=== PATIENT | male | born 1950 | race Caucasian/White ===

== ENCOUNTER 2016-06-20 16:37 | Observation (INO) | payer MEDICARE, MEDICAID ==
[~2016-06-20] VITALS: Ht 182.9 cm; Wt 111.2 kg
[~2016-06-20 16:37] MED LIST: AMLODIPINE10 MG PO; AMLODIPINE5 MG PO; ASPIRIN LOW DOS81 M2 PO; ASPIRIN OR; AVANDIA4 MG OR; BENICAR40 MG OR; BENICAR40 MG PO; CIPRO500 MG OR; COREG25 MG OR; COREG25 MG PO; DIAZEPAM5 MG OR; DIAZEPAM5 MG PO; DIGITEK0.125 MG OR; DIGOXIN0.125 MG PO; HYDROCODON XX; LANTUS; LANTUS SC; LANTUS100 MG/ML SC; LEXAPRO10 MG OR; LEXAPRO10 MG PO; LIPITOR10 MG OR; LORTAB 5 PO; LORTAB 7.5 OR; LOSARTAN POTASS50 MG; MEDDOSEPAK OR; METFORMIN500 MG PO; NEXIUM20 M1 OR; NIASPAN1000 ER OR; NIASPAN500 MG PO; NORCO1 TA1 PO; NORVASC2.5 MG PO; PERCOCET1 TA1 OR; PERCOCET1 TA2 OR; PRAVACHOL40 MG PO; PRAVASTATIN SOD40 MG PO; PRILOSEC40 MG PO; SINGULAIR OR; TRICOR145 MG OR; WELLBUTRIN SR150 MG PO
[2016-06-20 17:21] LABS: HEMATOCRIT 45.7 % (39.0-50.0); HEMOGLOBIN 15.2 g/dl (14.0-18.0); IMMATURE GRANULOCYTES 0.3 % (0.0-1.0); MEAN CELL VOLUME 90.5 fL CALC (80.0-100.0); MEAN CORPUSCULAR HGB 30.1 pG CALC (26.0-32.0); MEAN CORPUSCULAR HGB CONC 33.3 g/L CALC (32.0-36.0); NEUT# 4.93 thou/uL (1.82-7.42); RED BLOOD COUNT 5.05 mill/uL (4.70-6.10); RED CELL DISTRI WIDTH 13.2 % (11.5-15.5)
[2016-06-20 17:49] LABS: ALKALINE PHOSPHATASE 117 u/l (38-126); ANION GAP 15 (6-22 (CALC)); BILIRUBIN, TOTAL 0.9 mg/dL (0.0-1.4); BUN 7 mg/dL (8-23); BUN/CREATININE RATIO 9 (12-20 (CALC)); CALCIUM 9.3 mg/dL (8.4-10.2); CARBON DIOXIDE 28 mmol/l (22-30); CHLORIDE 99 mmol/l (95-108); CREATININE 0.7 mg/dL (0.7-1.3); GFR > 60 ML/MIN (>=60 (CALC)); GFR FOR AFR.AMER. > 60 ML/MIN (>=60 (CALC)); GLUCOSE 148 mg/dL (82-115); POTASSIUM 3.7 mmol/l (3.5-5.1); SGOT/AST 33 u/l (19-48); SGPT/ALT 36 u/l (11-66); SODIUM 139 mmol/l (137-146); TOTAL PROTEIN 8.1 g/dL (6.3-8.2)
[2016-06-20 18:05] LABS: URINE BILIRUBIN - DIPSTICK NEGATIVE (NEGATIVE); URINE BLOOD DIPSTICK NEGATIVE (NEGATIVE); URINE CLARITY CLEAR; URINE COLOR YELLOW; URINE GLUCOSE - DIPSTICK NEGATIVE (NEGATIVE); URINE KETONE NEGATIVE (NEGATIVE); URINE LEUK ESTERASE NEGATIVE (NEGATIVE); URINE NITRITE - DIPSTICK NEGATIVE (Negative); URINE PROTEIN - DIPSTICK 30 mg/dL (NEG-TRACE); URINE SPECIFIC GRAVITY 1.015; URINE UROBILINOGEN - DIPSTICK 0.2 E.U./dL (0.2)
[2016-06-20 18:58] LABS: URINE MUCUS FEW hpf (NONE-FEW); URINE SQUAMOUS EPITHELIAL CELL FEW EPI/hpf (0-FEW)
[2016-06-20 19:33] VITALS: BP 120/70
[2016-06-20 23:55] VITALS: BP 125/71
[2016-06-21 04:45] VITALS: BP 91/59
[2016-06-21 08:56] VITALS: BP 113/67
[2016-06-21 11:24] VITALS: BP 118/70
[2016-06-21] MEDS ORDERED: ZPAK PO (11:56)
[2016-06-21] MEDS ORDERED: MEDDOSEPAK PO (11:56)
== END 2016-06-21 13:30 | disposition home or self-care (01) ==
LOC: ENPENDDIS → ED 16:37 → ED-I 18:00 → ED 18:15 → MS2 18:16 → UNDODEPER 19:40 → MS2 06-21 13:30
PROVIDERS: Emergency Medicine; ADMIT Internal Medicine; ATTEND Internal Medicine
DX: R07.89 Other chest pain (principal); I10 Essential (primary) hypertension; J44.9 Chronic obstructive pulmonary disease, unspecified; E10.8 Type 1 diabetes mellitus with unspecified complications; I48.91 Unspecified atrial fibrillation; F41.9 Anxiety disorder, unspecified; E78.5 Hyperlipidemia, unspecified; F17.210 Nicotine dependence, cigarettes, uncomplicated; G47.33 Obstructive sleep apnea (adult) (pediatric); Z79.4 Long term (current) use of insulin
CPT/HCPCS: J1650

== ENCOUNTER 2016-09-07 09:23 | Emergency (ER) | payer MEDICARE, MEDICAID ==
[~2016-09-07] VITALS: Ht 182.9 cm; Wt 114.5 kg
[~2016-09-07 09:23] MED LIST changes: +MEDDOSEPAK PO; +ZPAK PO
[2016-09-07 10:01] LABS: HEMATOCRIT 43.6 % (39.0-50.0); HEMOGLOBIN 14.8 g/dl (14.0-18.0); IMMATURE GRANULOCYTES 0.2 % (0.0-1.0); MEAN CELL VOLUME 90.1 fL CALC (80.0-100.0); MEAN CORPUSCULAR HGB 30.6 pG CALC (26.0-32.0); MEAN CORPUSCULAR HGB CONC 33.9 g/L CALC (32.0-36.0); NEUT# 2.82 thou/uL (1.82-7.42); RED BLOOD COUNT 4.84 mill/uL (4.70-6.10); RED CELL DISTRI WIDTH 13.2 % (11.5-15.5)
[2016-09-07 10:12] LABS: ALBUMIN 4.4 g/dL (3.2-5.0); ALKALINE PHOSPHATASE 77 u/l (38-126); ANION GAP 17 (6-22 (CALC)); BILIRUBIN, TOTAL 0.7 mg/dL (0.0-1.4); BUN 9 mg/dL (8-23); BUN/CREATININE RATIO 14 (12-20 (CALC)); CALCIUM 8.6 mg/dL (8.4-10.2); CARBON DIOXIDE 31 mmol/l (22-30); CHLORIDE 96 mmol/l (95-108); CREATININE 0.6 mg/dL (0.7-1.3); GFR > 60 ML/MIN (>=60 (CALC)); GFR FOR AFR.AMER. > 60 ML/MIN (>=60 (CALC)); GLUCOSE 145 mg/dL (82-115); POTASSIUM 3.3 mmol/l (3.5-5.1); SGOT/AST 43 u/l (19-48); SGPT/ALT 35 u/l (11-66); SODIUM 140 mmol/l (137-146); TOTAL PROTEIN 8.1 g/dL (6.3-8.2)
[2016-09-07 10:24] LABS: MYOGLOBIN 40 ng/mL (0 - 121)
[2016-09-07 12:03] LABS: URINE BLOOD DIPSTICK NEGATIVE (NEGATIVE); URINE GLUCOSE - DIPSTICK NEGATIVE (NEGATIVE); URINE KETONE TRACE mg/dL (NEGATIVE); URINE LEUK ESTERASE NEGATIVE (NEGATIVE); URINE PH 5.5 (4.5-8.0); URINE PROTEIN - DIPSTICK 100 mg/dL (NEG-TRACE); URINE SPECIFIC GRAVITY >=1.030
[2016-09-07 12:10] LABS: URINE BILIRUBIN - DIPSTICK MODERATE (NEGATIVE); URINE CLARITY SLIGHT CLOUDY; URINE COLOR DK. YELLOW; URINE NITRITE - DIPSTICK POSITIVE (Negative)
[2016-09-07 12:13] LABS: URINE BACTERIA FEW hpf; URINE EPITHELIAL CELLS MODERATE EPI/hpf (0-FEW)
[2016-09-07] MEDS ORDERED: MEDDOSEPAK PO (12:53)
[2016-09-07] MEDS ORDERED: VENTOLIN HFA IN (12:53)
[2016-09-07] MEDS ORDERED: ZITHROMAX250 MG PO (12:53)
[2016-09-07 12:56] VITALS: BP 137/63
== END 2016-09-07 13:09 | disposition home or self-care (01) ==
LOC: ED 09:23
PROVIDERS: Emergency Medicine
DX: J44.1 Chronic obstructive pulmonary disease with (acute) exacerbation (principal); E11.9 Type 2 diabetes mellitus without complications; I48.91 Unspecified atrial fibrillation; I10 Essential (primary) hypertension; F41.9 Anxiety disorder, unspecified; Z87.891 Personal history of nicotine dependence

== ENCOUNTER 2017-01-23 07:59 | Emergency (ER) | payer MEDICARE, MEDICAID ==
[~2017-01-23] VITALS: Ht 182.9 cm; Wt 85.0 kg
[~2017-01-23 07:59] MED LIST changes: +VENTOLIN HFA IN; +ZITHROMAX250 MG PO
[2017-01-23 08:25] VITALS: BP 148/88
== END 2017-01-23 08:26 | disposition home or self-care (01) ==
LOC: ED 07:59
DX: T65.221A Toxic effect of tobacco cigarettes, accidental (unintentional), initial encounter (principal); R11.2 Nausea with vomiting, unspecified; Y92.009 Unspecified place in unspecified non-institutional (private) residence as the place of occurrence of the external cause

== ENCOUNTER 2017-03-13 07:58 | Emergency (ER) | payer MEDICARE, MEDICAID ==
[~2017-03-13] VITALS: Ht 182.9 cm; Wt 105.0 kg
[~2017-03-13 07:58] MED LIST changes: -LOSARTAN POTASS50 MG; +LOSARTAN POTASS50 MG PO
[2017-03-13] MEDS ORDERED: DIAZEPAM10 M2 PO (10:12)
[2017-03-13] MEDS ORDERED: PERCOCET 5/325M1 TAB PO (10:13)
[2017-03-13] MEDS ORDERED: TIZANIDINE HCL4 MG PO (10:15)
[2017-03-13] MEDS ORDERED: LANTUS100 UNIT/M SC ×2 (10:16→10:17)
[2017-03-13] MEDS ORDERED: AMLODIPINE BESYL5 MG PO (10:17)
[2017-03-13 10:55] VITALS: BP 139/74
== END 2017-03-13 10:55 | disposition home or self-care (01) ==
LOC: ED 07:58
DX: S00.83XA Contusion of other part of head, initial encounter (principal); S20.212A Contusion of left front wall of thorax, initial encounter; S80.01XA Contusion of right knee, initial encounter; F17.210 Nicotine dependence, cigarettes, uncomplicated; I48.91 Unspecified atrial fibrillation; E11.9 Type 2 diabetes mellitus without complications; I10 Essential (primary) hypertension; W01.0XXA Fall on same level from slipping, tripping and stumbling without subsequent striking against object, initial encounter; Y92.512 Supermarket, store or market as the place of occurrence of the external cause

== ENCOUNTER 2017-03-26 16:07 | Emergency (ER) | payer MEDICARE, MEDICAID ==
[~2017-03-26] VITALS: Ht 182.9 cm; Wt 103.0 kg
[~2017-03-26 16:07] MED LIST changes: +AMLODIPINE BESYL5 MG PO; +DIAZEPAM10 M2 PO; +LANTUS100 UNIT/M SC; +PERCOCET 5/325M1 TAB PO; +TIZANIDINE HCL4 MG PO
[2017-03-26 17:34] VITALS: BP 138/80
== END 2017-03-26 17:40 | disposition home or self-care (01) ==
LOC: ED 16:07
DX: M54.5 Low back pain (principal); G89.29 Other chronic pain; W19.XXXA Unspecified fall, initial encounter; Y92.009 Unspecified place in unspecified non-institutional (private) residence as the place of occurrence of the external cause

== ENCOUNTER 2017-03-31 21:40 | Emergency (ER) | payer MEDICARE, MEDICAID ==
[~2017-03-31] VITALS: Ht 182.9 cm; Wt 102.0 kg
[2017-03-31 23:37] LABS: INFLUENZA A NONE DETECTED (NONE DETECT); INFLUENZA B NONE DETECTED (NONE DETECT)
[2017-04-01 00:03] LABS: HEMATOCRIT 45.4 % (39.0-50.0); HEMOGLOBIN 15.2 g/dl (14.0-18.0); IMMATURE GRANULOCYTES 0.2 % (0.0-1.0); MEAN CELL VOLUME 95.4 fL CALC (80.0-100.0); MEAN CORPUSCULAR HGB 31.9 pG CALC (26.0-32.0); MEAN CORPUSCULAR HGB CONC 33.5 g/L CALC (32.0-36.0); NEUT# 3.63 thou/uL (1.82-7.42); RED BLOOD COUNT 4.76 mill/uL (4.70-6.10); RED CELL DISTRI WIDTH 14.1 % (11.5-15.5); URINE BLOOD DIPSTICK NEGATIVE (NEGATIVE); URINE COLOR ORANGE; URINE GLUCOSE - DIPSTICK 250 mg/dL (NEGATIVE); URINE KETONE TRACE mg/dL (NEGATIVE); URINE LEUK ESTERASE NEGATIVE (NEGATIVE); URINE NITRITE - DIPSTICK NEGATIVE (Negative); URINE PROTEIN - DIPSTICK 100 mg/dL (NEG-TRACE)
[2017-04-01 00:07] LABS: URINE BILIRUBIN - DIPSTICK NEGATIVE (NEGATIVE); URINE CLARITY SL CLOUDY
[2017-04-01 00:08] LABS: BARBITURATES NEGATIVE (NEGATIVE); COCAINE NEGATIVE (NEGATIVE); METHADONE NEGATIVE (NEGATIVE); OXCYCODONE POSITIVE (NEGATIVE); TETRAHYDROCANNABIONOL NEGATIVE (NEGATIVE); TRICYLIC ANTIDEPRESSANTS NEGATIVE (NEGATIVE)
[2017-04-01 00:12] LABS: ALBUMIN 4.2 g/dL (3.2-5.0); ALKALINE PHOSPHATASE 101 u/l (38-126); AMYLASE 51 u/l (30-110); ANION GAP 14 (6-22 (CALC)); BILIRUBIN, TOTAL 0.6 mg/dL (0.0-1.4); BUN 14 mg/dL (8-23); BUN/CREATININE RATIO 19 (12-20 (CALC)); CARBON DIOXIDE 32 mmol/l (22-30); CHLORIDE 100 mmol/l (95-108); CREATININE 0.7 mg/dL (0.7-1.3); GFR > 60 ML/MIN (>=60 (CALC)); GFR FOR AFR.AMER. > 60 ML/MIN (>=60 (CALC)); LIPASE 65 u/l (23-300); POTASSIUM 3.8 mmol/l (3.5-5.1); SGOT/AST 27 u/l (19-48); SGPT/ALT 22 u/l (11-66); SODIUM 143 mmol/l (137-146); TOTAL PROTEIN 7.5 g/dL (6.3-8.2)
[2017-04-01 00:14] LABS: URINE RBC 0-2 RBC/hpf (0-5); URINE WBC 0-2 WBC/hpf (0-5)
[2017-04-01 00:15] LABS: URINE BACTERIA FEW hpf; URINE COARSE GRANULAR CAST MODERATE lpf; URINE MUCUS FEW hpf (NONE-FEW); URINE SQUAMOUS EPITHELIAL CELL FEW EPI/hpf (0-FEW)
[2017-04-01 00:17] LABS: URINE AMORPH SEDIMENT FEW hpf (NONE-FER)
[2017-04-01 00:20] LABS: MYOGLOBIN 110 ng/mL (0 - 121)
[2017-04-01] MEDS ORDERED: CIPROFLOXACN500 MG PO (01:16)
[2017-04-01] MEDS ORDERED: ZOFRAN ODT4 MG PO (01:16)
[2017-04-01 01:56] VITALS: BP 103/55
== END 2017-04-01 02:09 | disposition home or self-care (01) ==
LOC: ED 21:40
PROVIDERS: Emergency Medicine
DX: K52.9 Noninfective gastroenteritis and colitis, unspecified (principal); I10 Essential (primary) hypertension; I48.91 Unspecified atrial fibrillation; E11.9 Type 2 diabetes mellitus without complications; F17.210 Nicotine dependence, cigarettes, uncomplicated; R93.5 Abnormal findings on diagnostic imaging of other abdominal regions, including retroperitoneum
CPT/HCPCS: Q9967

== ENCOUNTER 2017-07-09 13:57 | Observation (INO) | payer MEDICARE, MEDICAID ==
[~2017-07-09] VITALS: Ht 182.9 cm; Wt 92.2 kg
[~2017-07-09 13:57] MED LIST changes: +CIPROFLOXACN500 MG PO; +ZOFRAN ODT4 MG PO
[2017-07-09 14:42] LABS: HEMOGLOBIN 16.1 g/dl (14.0-18.0); IMMATURE GRANULOCYTES 0.2 % (0.0-1.0); MEAN CELL VOLUME 94.1 fL CALC (80.0-100.0); MEAN CORPUSCULAR HGB 31.6 pG CALC (26.0-32.0); MEAN CORPUSCULAR HGB CONC 33.5 g/L CALC (32.0-36.0); NEUT# 4.62 thou/uL (1.82-7.42); RED BLOOD COUNT 5.1 mill/uL (4.70-6.10); RED CELL DISTRI WIDTH 14.6 % (11.5-15.5)
[2017-07-09 15:04] LABS: ALBUMIN 3.8 g/dL (3.2-5.0); ALKALINE PHOSPHATASE 89 u/l (38-126); ANION GAP 15 (6-22 (CALC)); BILIRUBIN, TOTAL 0.8 mg/dL (0.0-1.4); BUN 16 mg/dL (8-23); BUN/CREATININE RATIO 23 (12-20 (CALC)); CARBON DIOXIDE 29 mmol/l (22-30); CHLORIDE 103 mmol/l (95-108); CREATININE 0.7 mg/dL (0.7-1.3); GFR > 60 ML/MIN (>=60 (CALC)); GFR FOR AFR.AMER. > 60 ML/MIN (>=60 (CALC)); LIPASE 47 u/l (23-300); POTASSIUM 3.8 mmol/l (3.5-5.1); SGOT/AST 21 u/l (19-48); SGPT/ALT 29 u/l (11-66); SODIUM 142 mmol/l (137-146); TOTAL PROTEIN 7.4 g/dL (6.3-8.2)
[2017-07-09 16:29] LABS: C. DIFFICILE TOXIN A&B NEGATIVE (NEGATIVE)
[2017-07-09 16:54] LABS: URINE BLOOD DIPSTICK NEGATIVE (NEGATIVE); URINE COLOR YELLOW; URINE GLUCOSE - DIPSTICK NEGATIVE (NEGATIVE); URINE KETONE NEGATIVE (NEGATIVE); URINE LEUK ESTERASE NEGATIVE (NEGATIVE); URINE NITRITE - DIPSTICK NEGATIVE (Negative); URINE PH 5.5 (4.5-8.0); URINE PROTEIN - DIPSTICK 100 mg/dL (NEG-TRACE); URINE SPECIFIC GRAVITY >=1.030; URINE UROBILINOGEN - DIPSTICK 0.2 E.U./dL (0.2)
[2017-07-09 16:55] LABS: URINE BILIRUBIN - DIPSTICK MODERATE (NEGATIVE); URINE CLARITY CLEAR
[2017-07-09 17:00] LABS: URINE MUCUS MODERATE hpf (NONE-FEW); URINE SQUAMOUS EPITHELIAL CELL FEW EPI/hpf (0-FEW)
[2017-07-09 21:10] VITALS: BP 158/72
[2017-07-10 04:29] VITALS: BP 118/69
[2017-07-10 07:37] VITALS: BP 140/74
[2017-07-10 09:32] VITALS: BP 140/74
[2017-07-10 09:53] LABS: HEMOGLOBIN 14.8 g/dl (14.0-18.0); IMMATURE GRANULOCYTES 0.3 % (0.0-1.0); MEAN CELL VOLUME 93.1 fL CALC (80.0-100.0); MEAN CORPUSCULAR HGB CONC 34.4 g/L CALC (32.0-36.0); NEUT# 2.82 thou/uL (1.82-7.42); RED BLOOD COUNT 4.62 mill/uL (4.70-6.10); RED CELL DISTRI WIDTH 14.2 % (11.5-15.5)
[2017-07-10 10:16] LABS: ANION GAP 15 (6-22 (CALC)); BUN 22 mg/dL (8-23); BUN/CREATININE RATIO 40 (12-20 (CALC)); CALCULATED LDLCHOLESTEROL 89 mg/dL (62-129 (CALC)); CARBON DIOXIDE 27 mmol/l (22-30); CHLORIDE 102 mmol/l (95-108); CHOLESTEROL HDL RATIO 4.5 (<4.4 (CALC)); CREATININE 0.6 mg/dL (0.7-1.3); GFR > 60 ML/MIN (>=60 (CALC)); GFR FOR AFR.AMER. > 60 ML/MIN (>=60 (CALC)); HDL CHOLESTEROL 34 mg/dL (>=40); MAGNESIUM 1.6 mg/dL (1.6-2.3); POTASSIUM 4.5 mmol/l (3.5-5.1); SODIUM 140 mmol/l (137-146); TOTAL CHOLESTEROL 151 mg/dl (0-199); TOTAL TRIGLYCERIDES 140 mg/dl (30-149); VLDL CHOLESTROL 28 mg/dl (4-45 (CALC))
[2017-07-10] MEDS ORDERED: CIPROFLOXACN500 MG PO (11:48)
[2017-07-10] MEDS ORDERED: METRONIDAZOL500 MG PO (11:48)
== END 2017-07-10 14:11 | disposition home or self-care (01) ==
LOC: ED 13:57 → ED-I 20:00 → ED 20:17 → MS2 20:18
PROVIDERS: Family Medicine; Nurse Practitioner Family; ADMIT Internal Medicine; ATTEND Internal Medicine
DX: K52.9 Noninfective gastroenteritis and colitis, unspecified (principal); J44.1 Chronic obstructive pulmonary disease with (acute) exacerbation; E10.8 Type 1 diabetes mellitus with unspecified complications; I48.91 Unspecified atrial fibrillation; F17.210 Nicotine dependence, cigarettes, uncomplicated; G47.33 Obstructive sleep apnea (adult) (pediatric); G89.29 Other chronic pain; M54.9 Dorsalgia, unspecified; R10.84 Generalized abdominal pain; R05 Cough; D69.6 Thrombocytopenia, unspecified; K74.60 Unspecified cirrhosis of liver; K76.6 Portal hypertension; R94.31 Abnormal electrocardiogram [ECG] [EKG]
CPT/HCPCS: Q9967; S0164

== ENCOUNTER 2017-07-21 18:16 | Emergency (ER) | payer MEDICARE, MEDICAID ==
[~2017-07-21] VITALS: Ht 182.9 cm; Wt 100.0 kg
[~2017-07-21 18:16] MED LIST changes: +METRONIDAZOL500 MG PO
[2017-07-21 19:09] LABS: HEMOGLOBIN 14.1 g/dl (14.0-18.0); IMMATURE GRANULOCYTES 0.3 % (0.0-1.0); MEAN CELL VOLUME 95.2 fL CALC (80.0-100.0); MEAN CORPUSCULAR HGB CONC 33.6 g/L CALC (32.0-36.0); NEUT# 4.94 thou/uL (1.82-7.42); RED BLOOD COUNT 4.41 mill/uL (4.70-6.10); RED CELL DISTRI WIDTH 14.8 % (11.5-15.5)
[2017-07-21 19:11] LABS: ALBUMIN 3.6 g/dL (3.2-5.0); ALKALINE PHOSPHATASE 86 u/l (38-126); BILIRUBIN, TOTAL 0.6 mg/dL (0.0-1.4); BUN 9 mg/dL (8-23); BUN/CREATININE RATIO 15 (12-20 (CALC)); CARBON DIOXIDE 34 mmol/l (22-30); CHLORIDE 97 mmol/l (95-108); CPK 382 u/l (52-200); CREATININE 0.6 mg/dL (0.7-1.3); ETHYL ALCOHOL 0 mg/dl (0-30); GFR > 60 ML/MIN (>=60 (CALC)); GFR FOR AFR.AMER. > 60 ML/MIN (>=60 (CALC)); MAGNESIUM 1.6 mg/dL (1.6-2.3); SGOT/AST 35 u/l (19-48); SGPT/ALT 33 u/l (11-66); SODIUM 140 mmol/l (137-146); TOTAL PROTEIN 6.9 g/dL (6.3-8.2)
[2017-07-21 19:12] LABS: ANION GAP 13 (6-22 (CALC))
[2017-07-21 19:14] LABS: URINE BLOOD DIPSTICK TRACE-INTACT (NEGATIVE); URINE COLOR YELLOW; URINE GLUCOSE - DIPSTICK NEGATIVE (NEGATIVE); URINE KETONE TRACE mg/dL (NEGATIVE); URINE LEUK ESTERASE NEGATIVE (NEGATIVE); URINE NITRITE - DIPSTICK NEGATIVE (Negative); URINE PROTEIN - DIPSTICK 100 mg/dL (NEG-TRACE); URINE SPECIFIC GRAVITY >=1.030; URINE UROBILINOGEN - DIPSTICK 0.2 E.U./dL (0.2)
[2017-07-21 19:15] LABS: POTASSIUM 3.5 mmol/l (3.5-5.1)
[2017-07-21 19:17] LABS: URINE BILIRUBIN - DIPSTICK NEGATIVE (NEGATIVE); URINE CLARITY CLEAR
[2017-07-21 19:18] LABS: BARBITURATES NEGATIVE (NEGATIVE); COCAINE NEGATIVE (NEGATIVE); METHADONE NEGATIVE (NEGATIVE); OXCYCODONE POSITIVE (NEGATIVE); TETRAHYDROCANNABIONOL NEGATIVE (NEGATIVE); TRICYLIC ANTIDEPRESSANTS NEGATIVE (NEGATIVE)
[2017-07-21 19:22] LABS: MYOGLOBIN 253 ng/mL (0 - 121)
[2017-07-21 19:24] LABS: URINE RBC 0-2 RBC/hpf (0-5); URINE WBC 0-2 WBC/hpf (0-5)
[2017-07-21 19:41] LABS: TSH, 3RD GENERATION 0.25 uIU/mL (0.47 - 4.68)
[2017-07-21 23:39] VITALS: BP 132/62
== END 2017-07-21 23:49 | disposition home or self-care (01) ==
LOC: ED 18:16
PROVIDERS: Family Medicine
DX: E86.0 Dehydration (principal); J44.9 Chronic obstructive pulmonary disease, unspecified; F17.290 Nicotine dependence, other tobacco product, uncomplicated; K74.60 Unspecified cirrhosis of liver; M25.552 Pain in left hip; M54.5 Low back pain; R53.1 Weakness; W18.30XA Fall on same level, unspecified, initial encounter; Y93.01 Activity, walking, marching and hiking; Y92.009 Unspecified place in unspecified non-institutional (private) residence as the place of occurrence of the external cause; I10 Essential (primary) hypertension; I48.91 Unspecified atrial fibrillation; J90 Pleural effusion, not elsewhere classified; R18.8 Other ascites
CPT/HCPCS: Q9967